=== PATIENT | female | born 1945 ===

== ENCOUNTER 2018-12-04 04:49 | Emergency (ER) | payer MEDICARE | END 2018-12-04 05:14 | disposition home or self-care (01) | LOC: SCSER 04:49 | DX: L50.0 Allergic urticaria (principal); E03.9 Hypothyroidism, unspecified; E78.5 Hyperlipidemia, unspecified; I10 Essential (primary) hypertension; Z79.899 Other long term (current) drug therapy | CPT/HCPCS: 99282 ==